=== PATIENT | female | born 2000 | race Caucasian/White ===

== ENCOUNTER 2024-09-10 14:08 | Outpatient (CLI) | payer MEDICAID, SELFPAY ==
[2024-09-10 23:13] LABS: Chlamydia DNA Amplified* NOT DETECTED (No Detected); GC DNA Amplified* NOT DETECTED (No Detected)
== END 2024-09-10 14:09 | disposition home or self-care (01) ==
PROVIDERS: Visit Provider Physician Assistant Medical
DX: Z00.00 Encounter for general adult medical examination without abnormal findings (principal); Z11.3 Encounter for screening for infections with a predominantly sexual mode of transmission; Z12.4 Encounter for screening for malignant neoplasm of cervix
CPT/HCPCS: 87491; 87591; 87624; 87625; 88141; 88142

== ENCOUNTER 2024-10-23 08:22 | Outpatient (CLI) | payer MEDICAID, SELFPAY ==
--- NOTE | 2024-10-23 08:45 | CRLHL7_ITS ---
For Patients: As a result of the Century Cures Act, medical imaging exams and procedure reports are released immediately into your electronic medical record. You may view this report before your referring provider. If you have questions, please contact your health care provider. INDICATION: Pineal gland cyst. Migraine headaches. COMPARISON: 01/23/2019. TECHNIQUE: Multiplanar T1, T2, FLAIR and diffusion-weighted imaging. Post gadolinium to weighted sequences. Gadolinium 50 cc IV. FINDINGS: Normal brain parenchymal morphology and signal intensity. No intracranial hemorrhage. No abnormal ventricular dilatation. Intracranial vascular flow voids are preserved. There is new or more conspicuous focal outpouching arising from the right carotid terminus measuring approximately 5 mm in diameter (best seen on series 5, image 14). Finding may represent aneurysm. No midline shift. No restricted diffusion to suggest acute ischemia. No susceptibility artifact of remote hemorrhage. No abnormal enhancement or enhancing lesions within the brain parenchyma. Compared to the previous exam, stable size and appearance of a lobulated T2 hyperintense cystic appearing lesion of the pineal region measuring 1.6 x 2.1 x 2.5 cm (transverse by AP by oblique cephalocaudal; series 5, image 20; series 10, image 84). Internal cerebral veins are again displaced superiorly by this cystic lesion. There is associated mass-effect of the thalami and tectum but no abnormal signal intensity within the parenchyma or edema. No obstruction of the sylvian aqueduct. Post gadolinium imaging demonstrates thin internal enhancing septation but no evidence of nodular enhancement. Bilateral orbits are unremarkable. Normal appearing sella. Visualized paranasal sinuses mastoid air cells are unremarkable IMPRESSION: 1. New or more conspicuous focal outpouching arising from the right carotid terminus on axial T2 weighted imaging which may represent an aneurysm. Recommend follow-up with MRA or CTA of the head for further evaluation. Additionally, recommend consultation with neurointerventional radiology for follow-up. 2. No acute intracranial abnormality. 3. 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 Thin enhancing internal septation but no evidence of soft tissue nodularity. No surrounding edema. No obstructive hydrocephalus. 4. No abnormal enhancement elsewhere. Dictated by Bimal Sarmiento MD @ 10/24/2024 9:18:35 AM (Electronically Signed)
== END 2024-10-23 08:23 | disposition home or self-care (01) ==
PROVIDERS: PCP Physician Assistant Medical; Visit Provider Physician Assistant Medical
DX: G43.909 Migraine, unspecified, not intractable, without status migrainosus (principal)
CPT/HCPCS: 70553; A9575

== ENCOUNTER 2024-10-30 09:51 | Outpatient (CLI) | payer MEDICAID, SELFPAY ==
--- NOTE | 2024-10-30 10:00 | CRLHL7_ITS ---
For Patients: As a result of the Century Cures Act, medical imaging exams and procedure reports are released immediately into your electronic medical record. You may view this report before your referring provider. If you have questions, please contact your health care provider. CT ANGIOGRAM HEAD DATE: 10/30/2024 CLINICAL HISTORY: Patient with brain aneurysm. TECHNIQUE: Standard helical CT image acquisition through the intracranial circulation following intravenous administration of contrast material with bolus tracking. 2D and 3D MIP images for post-processing were performed and interpreted on an independent workstation and 3D images were permanently archived. COMPARISON: MRI 10/23/2024 FINDINGS: There is no proximal intracranial large vessel occlusion. There is no intracranial aneurysm. 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 The right internal carotid artery is normal. The right middle cerebral artery and its branches are normal. The right anterior cerebral artery and its branches are normal. The left internal carotid artery is normal. The left middle cerebral artery and its branches are normal. The left anterior cerebral artery and its branches are normal. The anterior communicating artery is well visualized and appears normal. The right vertebral artery and PICA are normal. The left vertebral artery and PICA are normal. The right vertebral artery is dominant. The basilar artery is patent and appears normal. The right posterior cerebral artery is normal. The left posterior cerebral artery is normal. The visualized venous structures are patent. IMPRESSION: No intracranial aneurysm. 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 Please note that all CT scans at this facility use dose modulation, iterative reconstruction, and/or weight-based dosing when appropriate to reduce radiation dose to as low as reasonably achievable. Dictated by: Sowmya Ramsey MD @ 10/30/2024 11:06:18 (Electronically Signed)
--- NOTE | 2024-10-30 10:30 | CRLHL7_ITS ---
For Patients: As a result of the Century Cures Act, medical imaging exams and procedure reports are released immediately into your electronic medical record. You may view this report before your referring provider. If you have questions, please contact your health care provider. CT ANGIOGRAM NECK DATE: 10/30/2024 CLINICAL HISTORY: Patient with brain aneurysm. TECHNIQUE: Standard helical CT image acquisition of the neck up to the skull base after bolus intravenous contrast enhancement. 2D and 3D MIP images for post-processing were performed and interpreted on an independent workstation and 3D images were permanently archived. COMPARISON: MRI 10/23/2024 FINDINGS: The origins of the great vessels from the aortic arch are patent. The origin of the right vertebral artery is patent. The origin of the left vertebral artery is patent. The common carotid arteries are patent. There is no stenosis at the origin of the right internal carotid artery. There is no stenosis at the origin of the left internal carotid artery. The rest of the cervical segments of the internal carotid arteries are patent up to the skull base. The right vertebral artery is dominant. The cervical segments of the vertebral arteries are patent up to the skull base. The visualized lung apices are unremarkable. The thyroid gland is unremarkable. The soft tissues of the neck are unremarkable. There are degenerative changes in the cervical spine. IMPRESSION: Patent cervical vasculature. Please note that all CT scans at this facility use dose modulation, iterative reconstruction, and/or weight-based dosing when appropriate to reduce radiation dose to as low as reasonably achievable. Dictated by: Sowmya Ramsey MD @ 10/30/2024 11:03:47 (Electronically Signed)
== END 2024-10-30 09:52 | disposition home or self-care (01) ==
LOC: CT 09:53
PROVIDERS: PCP Physician Assistant Medical; Visit Provider Physician Assistant Medical
DX: R90.89 Other abnormal findings on diagnostic imaging of central nervous system (principal)
CPT/HCPCS: 70496; 70498; Q9967

== ENCOUNTER 2024-11-02 09:37 | Outpatient (CLI) | payer MEDICAID, SELFPAY | END 2024-11-02 09:38 | disposition home or self-care (01) | LOC: NFLDREF 11-05 17:53 | PROVIDERS: PCP Physician Assistant Medical; Referring Provider Physician Assistant Medical; Visit Provider Physician Assistant Medical | DX: R39.9 Unspecified symptoms and signs involving the genitourinary system (principal); N39.0 Urinary tract infection, site not specified | CPT/HCPCS: 87086 ==

== ENCOUNTER 2024-12-29 11:22 | Outpatient (CLI) | payer MEDICAID, SELFPAY | END 2024-12-29 11:23 | disposition home or self-care (01) | PROVIDERS: PCP Physician Assistant Medical; Visit Provider Family Medicine | DX: R10.9 Unspecified abdominal pain (principal) | CPT/HCPCS: 80053; 83690 ==

== ENCOUNTER 2025-02-16 11:55 | Outpatient (CLI) | payer MEDICAID, SELFPAY ==
--- NOTE | 2025-02-16 12:15 | CRLHL7_ITS ---
For Patients: As a result of the Century Cures Act, medical imaging exams and procedure reports are released immediately into your electronic medical record. You may view this report before your referring provider. If you have questions, please contact your health care provider. CLINICAL HISTORY: Generalized abdominal pain COMPARISON: none TECHNIQUE: Real time herring scale imaging and color Doppler analysis was performed of the abdomen. FINDINGS: Sonographic imaging demonstrates normal size and uniform echotexture of the liver. The spleen is of normal size. The pancreas appears normal. The proximal abdominal aorta and IVC appear normal. There is no evidence of ascites. The gallbladder is of normal size and there is no evidence of sludge or stones within the gallbladder lumen. The gallbladder wall measures 2 mm in thickness. The common bile duct measures 2 mm in size within the gabino hepatis. The kidneys appear symmetric. The right kidney measures 10.1 cm in length and the left kidney measures 10.9 cm. There is no evidence of a renal calculus or hydronephrosis. IMPRESSION: Normal abdominal ultrasound. Dictated by Cecilio Philippe MD @ 02/16/2025 1:14:52 PM (Electronically Signed)
== END 2025-02-16 11:56 | disposition home or self-care (01) ==
LOC: US 11:56
PROVIDERS: PCP Physician Assistant Medical; Visit Provider Student in an Organized Health Care Education/Training Program
DX: R10.84 Generalized abdominal pain (principal)
CPT/HCPCS: 76700

== ENCOUNTER 2025-02-16 11:57 | Outpatient (CLI) | payer MEDICAID, SELFPAY ==
--- NOTE | 2025-02-16 13:00 | CRLHL7_ITS ---
For Patients: As a result of the Century Cures Act, medical imaging exams and procedure reports are released immediately into your electronic medical record. You may view this report before your referring provider. If you have questions, please contact your health care provider. INDICATION: Chronic nausea. TECHNIQUE: 5.9 mCi Tc-99m labeled Mebrofenin. 1.4 mcg CCK IV. COMPARISON : Correlation is made with today`s right upper quadrant ultrasound February 16, 2025 (reportedly normal gallbladder without stones or sludge). FINDINGS: Normal uptake and excretion of tracer by the liver. Activity is identified promptly within the extrahepatic biliary tree within 10 minutes and the gallbladder between 10 and 15 minutes. The gallbladder continues to fill up to 1 hour. No biliary leak. After the administration of CCK, the gallbladder ejection fraction was calculated at 14 percent which is below the lower limit of normal is 35 percent. IMPRESSION: 1. No evidence for cystic duct or common duct obstruction. No biliary leak. No evidence for acute cholecystitis. 2. Abnormally low gallbladder ejection fraction which can be seen in chronic acalculous cholecystitis or biliary dyskinesia. Please correlate clinically. Dictated by Kamron Anthony MD @ 02/16/2025 3:01:38 PM (Electronically Signed)
== END 2025-02-16 11:58 | disposition home or self-care (01) ==
LOC: NM 11:57
PROVIDERS: PCP Physician Assistant Medical; Visit Provider Internal Medicine Gastroenterology
DX: R11.0 Nausea (principal); K82.9 Disease of gallbladder, unspecified
CPT/HCPCS: 78227; A9537; J2805